=== PATIENT | male | born 1985 | race Caucasian/White ===

== ENCOUNTER 2023-06-23 08:09 | Emergency (ER) | payer BC ==
[2023-06-23] MEDS ORDERED: hydrOXYzine HCl 25 MG Tab PO ONE (09:03)
[2023-06-23 09:31] LABS: BASOPHILS PERCENT AUTO 0.8 % (0.0-1.0); EOSINOPHILS PERCENT AUTO 0.8 % (0.0-6.0); HEMATOCRIT 45.3 % (42.0-52.0); HEMOGLOBIN 15.9 gm/dl (14.0-18.0); IMMATURE GRAN ABSOLUTE AUTO 0.02 K/mm3 (0.00-0.05); IMMATURE GRAN PERCENT AUTO 0.4 % (0.0-0.4); LYMPHOCYTES ABSOLUTE AUTO 1.2 K/mm3 (1.0-4.8); LYMPHOCYTES PERCENT AUTO 22.6 % (24.0-44.0); MEAN CORPUSCULAR HGB CONC 35.1 g/dl (32.0-36.0); MEAN CORPUSCULAR VOLUME 82.7 fl (83.0-99.0); MEAN PLATELET VOLUME 9.1 fl (9.4-12.4); MONOCYTES ABSOLUTE AUTO 0.4 K/mm3 (0.0-0.8); MONOCYTES PERCENT AUTO 7.5 % (0.0-8.0); NEUTROPHILS ABSOLUTE AUTO 3.6 K/mm3 (1.8-7.7); NEUTROPHILS PERCENT AUTO 67.9 % (41.0-71.0); PLATELET COUNT,PLT 236 K/mm3 (150-400); RED BLOOD CELL COUNT 5.48 M/mm3 (4.52-5.90)
[2023-06-23 09:50] LABS: A/G RATIO 1.1 (1-2); ALANINE AMINOTRANSFERASE,ALT 31 U/L (16-63); ALKALINE PHOSPHATASE 90 U/L (46-116); ANION GAP 16.3 (5-15); ASPARTATE AMNIOTRANSFERASE,AST 18 U/L (15-37); BILIRUBIN TOTAL 0.5 mg/dL (0.2-1.0); BLOOD UREA NITROGEN,BUN 14 mg/dL (7-18); BUN/CREATININE RATIO 12.7 (14-18); C-REACTIVE PROTEIN <0.2 mg/dL (<1.0); CALCIUM 8.7 mg/dL (8.5-10.1); CARBON DIOXIDE,CO2 25 mEq/L (21-32); CHLORIDE,CL 105 mEq/L (98-107); CREATININE 1.1 mg/dL (0.7-1.3); EST CRCL DRUG DOSING (CG) 95.08 mL/min; ESTIMATED GFR 87 mL/min (>60); GLUCOSE RANDOM 116 mg/dL (70-99); POTASSIUM,K 4.3 mEq/L (3.5-5.1); PROTEIN TOTAL,TP 7.6 g/dl (6.4-8.2); SODIUM,NA 142 mEq/L (136-145); TROPONIN I HIGH SENSITIVITY 6 pg/mL (<=76)
== END 2023-06-23 11:20 | disposition home or self-care (01) ==
LOC: JD.ED 08:09
DX: M54.12 Radiculopathy, cervical region (principal); R42 Dizziness and giddiness
CPT/HCPCS: 36415; 72040; 80053; 83735; 84484; 85025; 86140; 93005; 99284; A9270; 93010

== ENCOUNTER 2023-06-24 01:50 | Emergency (ER) | payer BC ==
[2023-06-24] MEDS ORDERED: Ketorolac 30 MG/ML SDV IM ONE (02:44)
[2023-06-24] MEDS ORDERED: Orphenadrine 100 MG Tab.ER PO ONE (02:45)
[2023-06-24] MEDS ORDERED: Diclofenac Sodium 1% Gel 100 GM Tube TOP ONE (04:12)
== END 2023-06-24 06:36 | disposition home or self-care (01) ==
LOC: JD.ED 01:50
DX: M62.838 Other muscle spasm (principal); M54.12 Radiculopathy, cervical region; M62.830 Muscle spasm of back; Z86.16 Personal history of COVID-19
CPT/HCPCS: 96372; 99283; A9270; J1885